=== PATIENT | female | born 1980 | race African-American/Black ===

== ENCOUNTER 2017-07-03 08:29 | Emergency (ER) | payer SELFPAY ==
[~2017-07-03 08:29] MED LIST: ISOVUE-370 76%-LOCM 1 ML ONE; Iopamidol 370 76% 50 ML VIAL FS ONE
[2017-07-03] MEDS ORDERED: Ondansetron ODT 4 MG TAB ONE ×2 (08:56→12:26)
[2017-07-03 09:04] LABS: Hemoglobin 10.9 g/dL (12.0-16.0); Mean Corpuscular HGB CONC 32.3 g/dL (32.0-36.0); Mean Corpuscular Hemoglobin 26.5 pg (27.0-31.0); Mean Corpuscular Volume 81.9 fl (81.0-99.0); Mean Platelet Volume 6.1 fL (7.4-10.4); Platelet Count 417 thou/uL (130-400); RBC Distribution Width 16.9 % (11.5-14.5); Red Blood Cell (RBC) Count 4.12 mill/uL (4.20-5.40); White Blood Cell (WBC) Count 23.3 thou/uL (4.8-10.8)
[2017-07-03 09:09] LABS: Bilirubin Negative (Negative); Blood, Urine Large (Negative); Clarity CLEAR (Clear); Glucose, Urine (Dipstick) Negative (Negative); Leukocyte Small (Negative); Nitrite Negative (Negative); Protein, Urine (Dipstick) Negative (Neg-Trace); Urobilinogen 0.2 mg/dL (0.2-1.0); pH, Urine 7.5 (5.0-9.0)
[2017-07-03 09:10] LABS: Pathc Cast-AUWi Flag 0.29 (0-2.49)
[2017-07-03 09:11] LABS: BHCG - Serum Negative (NEGATIVE); Pregs Control Background? CLEAR/WHITE (CLR/WHITE); Pregs Control Bar Appear? YES (CONTROL BAR)
[2017-07-03 09:18] LABS: Specific Gravity, Urine 1.001 (1.002-1.036)
[2017-07-03 09:20] LABS: ALT (SGPT) 9 U/L (8-55); AST (SGOT) 18 U/L (5-34); Albumin 4.6 g/dL (3.5-5.0); Alkaline Phosphatase 62 U/L (40-150); Anion Gap 14 mmol/L (10-20); BUN (Urea Nitrogen) 10 mg/dL (7.0-18.7); Bilirubin, Total 0.5 mg/dL (0.2-1.2); Calc. Creatinine Clearance 0 mL/min (70-130); Calcium 9.6 mg/dL (7.8-10.44); Carbon Dioxide 20 mmol/L (22-29); Chloride 105 mmol/L (98-107); Estimated GFR-MDRD Greater than 90; Globulin 3.7 g/dL (2.4-3.5); Glucose 84 mg/dL (70-105); Lipase 28 U/L (8-78); Potassium 4.1 mmol/L (3.5-5.1); Protein, Total 8.3 g/dL (6.0-8.3); Sodium 135 mmol/L (136-145)
[2017-07-03 09:21] LABS: Band 4 % (5-11); Lymphocytes 16 % (21-51); MDiff Complete? YES; Monocytes 3 % (0-10); Neutrophil 77 % (42-75); PLT Morphology Comment Appears Increased; Polychromasia SLIGHT = 2-3 cells (100X) (0-2/hpf); Reflex for Review?? NO; Small Platelets MODERATE
[2017-07-03 09:28] LABS: Bacteria/HPF None Seen HPF (None Seen); RBC/HPF 0-3 HPF (0-3); Squamous Epithelial 0-3 HPF (0-3); WBC/HPF 0-3 HPF (0-3)
[2017-07-03 09:29] LABS: Hyaline Casts/LPF 0-3 HYALINE CAST LPF (0-3 Hyaline)
[2017-07-03] MEDS ORDERED: Morphine 4 MG/ML VIAL ONE (09:34)
--- NOTE | 2017-07-03 10:47 | ULT ---
PELVIC ULTRASOUND INCLUDING TRANSABDOMINAL AND VASCULAR DUPLEX: Date: 07/03/17 No transvaginal study. HISTORY: 37-year-old female with history of right lower quadrant pain with palpable mass. FINDINGS: The uterus is markedly enlarged and very heterogeneously echogenic, measuring 13.9 x 7.6 x 9.8 cm. E ndometrial thickness cannot be evaluated because of extensive fibroids throughout the uterus. The lar gest fibroid measures 4.2 x 4.6 x 5.8 cm. Right and left ovaries are within normal limits. No evidenc e for ovarian torsion. No abscess or abnormal fluid collection. IMPRESSION: Fibroid uterus with multiple intrauterine fibroids. POS: [facility]
[2017-07-03] MEDS ORDERED: diphenhydrAMINE 50 MG/ML VIAL ONE (12:27)
--- NOTE | 2017-07-03 13:19 | CT ---
ABDOMEN AND PELVIC CT SCAN WITH IV CONTRAST: History: 37-year-old female with history of low abdominal pain. Comparison: Pelvic ultrasound examination, 07-03-17. FINDINGS: The lung bases are clear. The visualized liver, gallbladder, pancreas, spleen, and adrenal glands are unremarkable. No renal calculus or acute obstruction. Normal appearing appendix. Markedly enlarge d fibroid uterus measuring approximately 9.1 x 11.2 cm in AP and transverse dimensions. No evidence o f bowel obstruction, abscess, adenopathy or abnormal fluid collection. IMPRESSION: Large fibroid uterus. Normal appearing appendix. No renal calculus or obstruction or other acute p rocess. POS: [facility]
[2017-07-03] MEDS ORDERED: Ketorolac Tromethamine 30 MG/ML VIAL ONE (14:28)
[2017-07-03 14:29] LABS: #Lymphocytes 3.1 thou/uL (1.20-3.40); #Monocytes 1.4 thou/uL (0.11-0.59); #Neutrophils 11.3 thou/uL (1.40-6.50); %Basophils 0.2 % (0.0-1.0); %Eosinophils 0.3 % (0.0-10.0); %Lymphocytes 19.4 % (21.0-51.0); %Monocytes 8.6 % (0.0-10.0); %Neutrophils 71.5 % (42.0-75.0); Hemoglobin 9.7 g/dL (12.0-16.0); Mean Corpuscular HGB CONC 31.9 g/dL (32.0-36.0); Mean Corpuscular Hemoglobin 26.3 pg (27.0-31.0); Mean Corpuscular Volume 82.3 fl (81.0-99.0); Mean Platelet Volume 6.1 fL (7.4-10.4); Platelet Count 349 thou/uL (130-400); RBC Distribution Width 16.7 % (11.5-14.5); Red Blood Cell (RBC) Count 3.69 mill/uL (4.20-5.40); White Blood Cell (WBC) Count 15.9 thou/uL (4.8-10.8)
== END 2017-07-03 19:43 | disposition home or self-care (01) ==
LOC: ERS 08:29 → EEVIPCON 08:29 → ERS 19:43
DX: D25.9 Leiomyoma of uterus, unspecified (principal); F17.210 Nicotine dependence, cigarettes, uncomplicated; Z71.6 Tobacco abuse counseling
CPT/HCPCS: 36415; 74177; 76856; 80053; 81003; 81015; 83605; 83690; 84703; 85025; 87040; 87086; 93976; 96361; 96374; 96375; J1200; J1885; J2270; Q0162